=== PATIENT | female | born 1945 | race Caucasian/White ===

== ENCOUNTER 2019-03-28 23:24 | Emergency (ER) | payer MEDICAID ==
[~2019-03-28] VITALS: Ht 162.6 cm; Wt 80.0 kg
[2019-03-29] MEDS ORDERED: SODIUM CHLORIDE 0.9% 1,000 ML IV ONE
[2019-03-29] MEDS ORDERED: KETOROLAC 15MG/ML VIAL IV ONE (00:15)
[2019-03-29] MEDS ORDERED: FAMOTIDINE 20MG TABLET PO ONE (00:15)
[2019-03-29 00:21] LABS: BASOPHILS % 0.6 % (0.0-2.0); EOSINOPHILS % 0.9 % (0.0-5.0); HEMATOCRIT. 34.7 % (36.0-48.0); LYMPHOCYTES % 19.5 % (20.0-50.0); MEAN CORPUSCULAR HEMOGLOBIN 31.5 pg (28.0-32.0); MEAN CORPUSCULAR VOLUME 91.2 fL (81.0-99.0); MEAN PLATELET VOLUME 7.2 fl (7.4-10.4); MONOCYTES % 5.2 % (2.0-8.0); NEUTROPHILS % 73.8 % (40.0-76.0); PLATELET 298 x1000/uL (130-400); RED BLOOD CELL COUNT 3.81 mill/uL (4.2-5.4); RED CELL DISTRIBUTION WIDTH 13.3 % (11.6-14.6)
[2019-03-29 00:36] LABS: CHLORIDE 101 mEq/L (98-107)
[2019-03-29 01:24] LABS: CLARITY URINE CLEAR (CLEAR); COLOR URINE YELLOW (YELLOW); KETONES URINE NEGATIVE (NEGATIVE); LEUKOCYTE ESTERASE URINE NEGATIVE (NEGATIVE); NITRITE URINE NEGATIVE (NEGATIVE); OCCULT BLOOD URINE TRACE (NEGATIVE); PROTEIN URINE NEGATIVE (NEGATIVE); SPECIFIC GRAVITY URINE 1.005 (1.005-1.030); UROBILINOGEN URINE 0.2 E.U./dL (0.2-1.0)
[2019-03-29 05:45] VITALS: BP 152/83
== END 2019-03-29 05:48 | disposition home or self-care (01) ==
LOC: ER 23:24
DX: E86.0 Dehydration (principal); R20.0 Anesthesia of skin; R03.0 Elevated blood-pressure reading, without diagnosis of hypertension; K59.00 Constipation, unspecified
CPT/HCPCS: 36415; 71045; 74018; 80053; 81003; 83605; 83880; 84484; 85025; 93005; 96360; 96361; 99284; J7030

== ENCOUNTER 2019-03-31 17:16 | Inpatient (IN) | payer MEDICAID ==
[~2019-03-31] VITALS: Ht 167.6 cm; Wt 79.4 kg
[2019-03-31] MEDS ORDERED: SODIUM CHLORIDE 0.9% 1,000 ML IV ONE (18:18)
[2019-03-31] MEDS ORDERED: ONDANSETRON HCL 4MG/2ML INJ IV STA (18:18)
[2019-03-31] MEDS ORDERED: MORPHINE SULFATE 4 MG/ML CPJ (NOT FOR IM USE) IV STA (18:18)
[2019-03-31 18:51] LABS: BASOPHILS % 0.2 % (0.0-2.0); EOSINOPHILS % 0.2 % (0.0-5.0); HEMOGLOBIN. 11.8 g/dL (12.0-16.0); LYMPHOCYTES % 13.7 % (20.0-50.0); MEAN CORPUSCULAR HEMOGLOBIN 31.8 pg (28.0-32.0); MEAN CORPUSCULAR VOLUME 88.6 fL (81.0-99.0); MEAN PLATELET VOLUME 6.8 fl (7.4-10.4); MONOCYTES % 3.4 % (2.0-8.0); NEUTROPHILS % 82.5 % (40.0-76.0); PLATELET 271 x1000/uL (130-400); RED BLOOD CELL COUNT 3.72 mill/uL (4.2-5.4); RED CELL DISTRIBUTION WIDTH 13.1 % (11.6-14.6)
[2019-03-31 18:57] LABS: CHLORIDE 89 mEq/L (98-107); PROTHROMBIN TIME 10.6 sec (9.6-11.0)
[2019-03-31 19:48] LABS: CLARITY URINE CLEAR (CLEAR); COLOR URINE YELLOW (YELLOW); KETONES URINE NEGATIVE (NEGATIVE); LEUKOCYTE ESTERASE URINE NEGATIVE (NEGATIVE); NITRITE URINE NEGATIVE (NEGATIVE); OCCULT BLOOD URINE 1+ (NEGATIVE); PH URINE 7.5 (4.5-8.0); PROTEIN URINE NEGATIVE (NEGATIVE); SPECIFIC GRAVITY URINE 1.004 (1.005-1.030); UROBILINOGEN URINE 0.2 E.U./dL (0.2-1.0)
[2019-03-31 22:57] VITALS: BP 147/68
[2019-03-31] MEDS ORDERED: LISI-186 PO (23:55)
[2019-03-31] MEDS ORDERED: ONDA4TAB11 PO (23:55)
[2019-03-31] MEDS ORDERED: ALPR-393 PO (23:55)
[2019-03-31] MEDS ORDERED: PARO-41 PO (23:55)
[2019-03-31] MEDS ORDERED: METF-815 PO (23:55)
[2019-03-31] MEDS ORDERED: TRAM50TA3 PO (23:55)
[2019-04-01] MEDS ORDERED: MORPHINE SULFATE 2 MG/ML CPJ (NOT FOR IM USE) IV PRN (00:15)
[2019-04-01] MEDS ORDERED: DEXTROSE 50% WATER 50ML SYRINGE IV PRN (00:15)
[2019-04-01] MEDS ORDERED: CLONIDINE 0.1MG TABLET PO PRN (00:15)
[2019-04-01] MEDS ORDERED: ONDANSETRON HCL 4MG/2ML INJ IV PRN (00:15)
[2019-04-01] MEDS: DEXT 5%/0.45% NACL 1000ML 1,000 ML IV SCH ×2 (00:47→10:57)
[2019-04-01 00:49] VITALS: BP 147/68
[2019-04-01] MEDS ORDERED: ONDANSETRON 4MG ODT PO PRN (01:30)
[2019-04-01] MEDS ORDERED: TRAMADOL 50MG TABLET PO PRN (01:30)
[2019-04-01 04:00] VITALS: BP 125/43
[2019-04-01 07:15] LABS: BASOPHILS % 0.5 % (0.0-2.0); EOSINOPHILS % 0.7 % (0.0-5.0); HEMATOCRIT. 31.8 % (36.0-48.0); HEMOGLOBIN. 11.4 g/dL (12.0-16.0); LYMPHOCYTES % 25.2 % (20.0-50.0); MEAN CORPUSCULAR HEMOGLOBIN 31.8 pg (28.0-32.0); MEAN CORPUSCULAR VOLUME 89.1 fL (81.0-99.0); MEAN PLATELET VOLUME 7.4 fl (7.4-10.4); MONOCYTES % 6.8 % (2.0-8.0); NEUTROPHILS % 66.8 % (40.0-76.0); PLATELET 273 x1000/uL (130-400); RED BLOOD CELL COUNT 3.57 mill/uL (4.2-5.4); RED CELL DISTRIBUTION WIDTH 13.3 % (11.6-14.6)
[2019-04-01 07:36] LABS: CHLORIDE 95 mEq/L (98-107)
[2019-04-01 08:00] VITALS: BP 136/61
[2019-04-01] MEDS: INSULIN LISPRO 100 UNITS/ML SUBCUT SCH ×4 (08:10→21:00)
[2019-04-01] MEDS: BLOOD SUGAR DIAGNOSTIC STRIP TEST SCH ×4 (08:34→21:28)
[2019-04-01] MEDS: PAROXETINE HCL 10MG TABLET PO SCH (08:57)
[2019-04-01] MEDS: ENOXAPARIN 40MG/0.4ML SYR SUBCUT SCH (09:00)
[2019-04-01] MEDS: LISINOPRIL 5MG TABLET PO SCH (09:00)
[2019-04-01] MEDS ORDERED: PANTOPRAZOLE SODIUM 40 MG/VIAL IV SCH (09:00)
[2019-04-01 12:00] VITALS: BP 147/72
[2019-04-01] MEDS: POTASSIUM CHLORIDE 20MEQ TABLET SR PO SCH (12:16)
[2019-04-01] MEDS ORDERED: IOHEXOL-350 100 ML BOTTLE ONE (13:45)
[2019-04-01] MEDS ORDERED: AMLODIPINE 5MG TABLET PO SCH (14:00)
[2019-04-01] MEDS ORDERED: ONDANSETRON HCL 4MG/2ML INJ IV SCH (14:15)
[2019-04-01 16:00] VITALS: BP 128/79
[2019-04-01] MEDS: METOCLOPRAMIDE HCL 10MG TABLET PO SCH ×2 (18:16→21:28)
[2019-04-01] MEDS: SODIUM CHLORIDE 0.9% 1,000 ML IV SCH (18:16)
[2019-04-01 20:00] VITALS: BP 145/87
[2019-04-01] MEDS: ALPRAZOLAM 0.5 MG TABLET PO PRN (21:28)
[2019-04-01] MEDS: OMEPRAZOLE 20MG CAPSULE EXTENDED RELEASE PO SCH (21:28)
[2019-04-02] VITALS (7 sets, daily range): BP systolic 99–136; BP diastolic 49–78
[2019-04-02] MEDS: SODIUM CHLORIDE 0.9% 1,000 ML IV SCH ×3 (03:26→23:28)
[2019-04-02] MEDS: INSULIN LISPRO 100 UNITS/ML SUBCUT SCH ×3 (06:36→23:25)
[2019-04-02] MEDS: BLOOD SUGAR DIAGNOSTIC STRIP TEST SCH ×3 (06:36→23:25)
[2019-04-02 07:07] LABS: BASOPHILS % 0.2 % (0.0-2.0); EOSINOPHILS % 0.3 % (0.0-5.0); HEMATOCRIT. 34.5 % (36.0-48.0); HEMOGLOBIN. 12.1 g/dL (12.0-16.0); LYMPHOCYTES % 20.5 % (20.0-50.0); MEAN CORPUSCULAR HEMOGLOBIN 31.4 pg (28.0-32.0); MEAN CORPUSCULAR VOLUME 89.5 fL (81.0-99.0); MEAN PLATELET VOLUME 7.2 fl (7.4-10.4); MONOCYTES % 6.2 % (2.0-8.0); NEUTROPHILS % 72.8 % (40.0-76.0); PLATELET 276 x1000/uL (130-400); RED BLOOD CELL COUNT 3.85 mill/uL (4.2-5.4); RED CELL DISTRIBUTION WIDTH 13.1 % (11.6-14.6)
[2019-04-02 07:18] LABS: CHLORIDE 97 mEq/L (98-107)
[2019-04-02] MEDS: ENOXAPARIN 40MG/0.4ML SYR SUBCUT SCH (09:12)
[2019-04-02] MEDS: LISINOPRIL 5MG TABLET PO SCH (09:12)
[2019-04-02] MEDS: POTASSIUM CHLORIDE 20MEQ TABLET SR PO SCH (09:13)
[2019-04-02] MEDS: OMEPRAZOLE 20MG CAPSULE EXTENDED RELEASE PO SCH ×2 (09:13→23:26)
[2019-04-02] MEDS: METOCLOPRAMIDE HCL 10MG TABLET PO SCH ×3 (09:15→23:24)
[2019-04-02] MEDS: PAROXETINE HCL 10MG TABLET PO SCH (09:15)
[2019-04-02] MEDS: AMLODIPINE 5MG TABLET PO SCH (09:16)
[2019-04-02] MEDS ORDERED: POTASSIUM CHLORIDE 20MEQ TABLET SR PO NR (11:00)
[2019-04-03] VITALS: BP 142/76
[2019-04-03 04:00] VITALS: BP 150/63
[2019-04-03 05:56] LABS: BASOPHILS % 0.4 % (0.0-2.0); EOSINOPHILS % 0.4 % (0.0-5.0); HEMATOCRIT. 32.9 % (36.0-48.0); HEMOGLOBIN. 11.7 g/dL (12.0-16.0); LYMPHOCYTES % 19.1 % (20.0-50.0); MEAN CORPUSCULAR HEMOGLOBIN 31.8 pg (28.0-32.0); MEAN CORPUSCULAR VOLUME 89.5 fL (81.0-99.0); MEAN PLATELET VOLUME 7.4 fl (7.4-10.4); MONOCYTES % 5.3 % (2.0-8.0); NEUTROPHILS % 74.8 % (40.0-76.0); PLATELET 281 x1000/uL (130-400); RED BLOOD CELL COUNT 3.68 mill/uL (4.2-5.4); RED CELL DISTRIBUTION WIDTH 13.1 % (11.6-14.6)
[2019-04-03 06:08] LABS: CHLORIDE 100 mEq/L (98-107)
[2019-04-03] MEDS: BLOOD SUGAR DIAGNOSTIC STRIP TEST SCH ×4 (06:24→18:10)
[2019-04-03 08:00] VITALS: BP 136/63
[2019-04-03] MEDS: INSULIN LISPRO 100 UNITS/ML SUBCUT SCH ×2 (08:10→18:10)
[2019-04-03] MEDS: OMEPRAZOLE 20MG CAPSULE EXTENDED RELEASE PO SCH (09:36)
[2019-04-03] MEDS: ENOXAPARIN 40MG/0.4ML SYR SUBCUT SCH (09:36)
[2019-04-03] MEDS: PAROXETINE HCL 10MG TABLET PO SCH (09:36)
[2019-04-03] MEDS: LISINOPRIL 5MG TABLET PO SCH (09:38)
[2019-04-03] MEDS: POTASSIUM CHLORIDE 20MEQ TABLET SR PO SCH (09:38)
[2019-04-03] MEDS: AMLODIPINE 5MG TABLET PO SCH (09:39)
[2019-04-03] MEDS: METOCLOPRAMIDE HCL 10MG TABLET PO SCH ×2 (09:44→15:21)
[2019-04-03] MEDS: SODIUM CHLORIDE 0.9% 1,000 ML IV SCH (11:11)
[2019-04-03 12:00] VITALS: BP 128/60
[2019-04-03] MEDS: ALPRAZOLAM 0.5 MG TABLET PO PRN (15:22)
[2019-04-03 16:00] VITALS: BP 132/65
== END 2019-04-03 20:10 | disposition home or self-care (01) | DRG 241 ==
LOC: ER 17:16 → EDBEDREQ 19:07 → EDBEDREQTM 19:35 → EDBEDREQSVC 20:09 → EDBEDREQTM 20:09 → 7WST 20:15 → EDBEDREQTM 20:26 → EDBEDREQ 20:26 → ENRESERV 22:22
PROVIDERS: ADMIT Internal Medicine; ATTEND Internal Medicine
DX: K29.70 Gastritis, unspecified, without bleeding (principal); K31.84 Gastroparesis; E87.8 Other disorders of electrolyte and fluid balance, not elsewhere classified; E11.43 Type 2 diabetes mellitus with diabetic autonomic (poly)neuropathy; E87.1 Hypo-osmolality and hyponatremia; E86.1 Hypovolemia; E44.1 Mild protein-calorie malnutrition; F41.9 Anxiety disorder, unspecified; K76.0 Fatty (change of) liver, not elsewhere classified; E87.6 Hypokalemia; E78.00 Pure hypercholesterolemia, unspecified; E78.5 Hyperlipidemia, unspecified; K57.90 Diverticulosis of intestine, part unspecified, without perforation or abscess without bleeding; R07.9 Chest pain, unspecified; I10 Essential (primary) hypertension; I44.0 Atrioventricular block, first degree; F32.9 Major depressive disorder, single episode, unspecified; K44.9 Diaphragmatic hernia without obstruction or gangrene; K59.00 Constipation, unspecified; Z79.4 Long term (current) use of insulin; Z68.28 Body mass index [BMI] 28.0-28.9, adult
CPT/HCPCS: 36415; 71045; 71275; 72131; 74176; 80048; 81003; 82962; 83880; 84484; 93005; 93306; 93970; 99285; C9113; J1650; J1815; J2270; J2405; J7030; J8597; Q9967

== ENCOUNTER 2019-04-04 23:30 | Inpatient (IN) | payer MEDICAID ==
[~2019-04-04] VITALS: Ht 157.5 cm; Wt 79.5 kg
[~2019-04-04 23:30] MED LIST: ALPR-393 PO; LISI-186 PO; METF-815 PO; ONDA4TAB11 PO; PARO-41 PO; TRAM50TA3 PO
[2019-04-05 04:08] LABS: CHLORIDE 82 mEq/L (98-107)
[2019-04-05 04:11] LABS: BASOPHILS % 0.3 % (0.0-2.0); EOSINOPHILS % 0.1 % (0.0-5.0); HEMATOCRIT. 35.5 % (36.0-48.0); HEMOGLOBIN. 12.6 g/dL (12.0-16.0); LYMPHOCYTES % 17.5 % (20.0-50.0); MEAN CORPUSCULAR HEMOGLOBIN 31.6 pg (28.0-32.0); MEAN CORPUSCULAR VOLUME 88.9 fL (81.0-99.0); MEAN PLATELET VOLUME 7.1 fl (7.4-10.4); MONOCYTES % 5.4 % (2.0-8.0); NEUTROPHILS % 76.7 % (40.0-76.0); PLATELET 292 x1000/uL (130-400)
[2019-04-05] MEDS ORDERED: SODIUM CHLORIDE 0.9% 1,000 ML IV ONE (05:30)
[2019-04-05 16:00] VITALS: BP 150/76
[2019-04-05 17:00] VITALS: BP 159/92
[2019-04-05 18:00] VITALS: BP 150/73
[2019-04-05 20:00] VITALS: BP 155/78
[2019-04-05] MEDS ORDERED: CLONIDINE 0.1MG TABLET PO PRN (20:30)
[2019-04-05] MEDS ORDERED: ACETAMINOPHEN 325MG TABLET PO PRN (20:30)
[2019-04-05] MEDS ORDERED: ONDANSETRON HCL 4MG/2ML INJ IV PRN (20:30)
[2019-04-05] MEDS ORDERED: ALPRAZOLAM 0.25 MG TABLET PO PRN (20:45)
[2019-04-05] MEDS ORDERED: TRAMADOL 50MG TABLET PO PRN (21:00)
[2019-04-05 22:00] VITALS: BP 118/68
[2019-04-05] MEDS ORDERED: DEXTROSE 50% WATER 50ML SYRINGE IV PRN (23:00)
[2019-04-06] VITALS (10 sets, daily range): BP systolic 111–152; BP diastolic 52–103
[2019-04-06] MEDS: SODIUM CHLORIDE 0.9% 1,000 ML IV SCH (01:30)
[2019-04-06 06:20] LABS: CHLORIDE 90 mEq/L (98-107)
[2019-04-06 06:24] LABS: BASOPHILS % 0.4 % (0.0-2.0); EOSINOPHILS % 0.6 % (0.0-5.0); HEMATOCRIT. 33.9 % (36.0-48.0); HEMOGLOBIN. 12.1 g/dL (12.0-16.0); MEAN CORPUSCULAR HEMOGLOBIN 31.5 pg (28.0-32.0); MEAN PLATELET VOLUME 7.3 fl (7.4-10.4); PLATELET 280 x1000/uL (130-400); RED BLOOD CELL COUNT 3.86 mill/uL (4.2-5.4)
[2019-04-06] MEDS: BLOOD SUGAR DIAGNOSTIC STRIP TEST SCH ×4 (07:30→20:55)
[2019-04-06] MEDS ORDERED: BLOOD SUGAR DIAGNOSTIC STRIP TEST SCH (07:30)
[2019-04-06] MEDS ORDERED: INSULIN LISPRO 100 UNITS/ML SUBCUT SCH (07:30)
[2019-04-06] MEDS ORDERED: POTASSIUM CHLORIDE 20MEQ TABLET SR PO NR (07:45)
[2019-04-06] MEDS: INSULIN LISPRO 100 UNITS/ML SUBCUT SCH ×4 (08:00→20:55)
[2019-04-06] MEDS: ENOXAPARIN 40MG/0.4ML SYR SUBCUT SCH (08:54)
[2019-04-06] MEDS: LISINOPRIL 5MG TABLET PO SCH ×2 (08:57→09:04)
[2019-04-06] MEDS: LACTULOSE 20G/30ML UDC PO SCH (17:01)
[2019-04-07] VITALS (12 sets, daily range): BP systolic 117–146; BP diastolic 57–80
[2019-04-07] MEDS: SODIUM CHLORIDE 0.9% 1,000 ML IV SCH (02:44)
[2019-04-07 07:11] LABS: BASOPHILS % 0.4 % (0.0-2.0); EOSINOPHILS % 0.4 % (0.0-5.0); HEMOGLOBIN. 11.9 g/dL (12.0-16.0); MEAN CORPUSCULAR HEMOGLOBIN 31.4 pg (28.0-32.0); MEAN CORPUSCULAR VOLUME 89.9 fL (81.0-99.0); MEAN PLATELET VOLUME 7.2 fl (7.4-10.4); MONOCYTES % 6.9 % (2.0-8.0); NEUTROPHILS % 74.3 % (40.0-76.0); PLATELET 273 x1000/uL (130-400); RED BLOOD CELL COUNT 3.78 mill/uL (4.2-5.4); RED CELL DISTRIBUTION WIDTH 13.2 % (11.6-14.6)
[2019-04-07] MEDS: INSULIN LISPRO 100 UNITS/ML SUBCUT SCH ×3 (08:00→17:03)
[2019-04-07] MEDS: BLOOD SUGAR DIAGNOSTIC STRIP TEST SCH ×3 (08:13→17:03)
[2019-04-07] MEDS: ENOXAPARIN 40MG/0.4ML SYR SUBCUT SCH (08:47)
[2019-04-07] MEDS: LACTULOSE 20G/30ML UDC PO SCH ×2 (08:47→17:00)
[2019-04-07] MEDS: LISINOPRIL 5MG TABLET PO SCH (08:48)
[2019-04-07 08:49] LABS: CHLORIDE 101 mEq/L (98-107)
[2019-04-07 08:56] LABS: PHOSPHORUS 3.5 mg/dL (2.5-4.9)
[2019-04-07] MEDS ORDERED: LACT10SO7 PO (17:05)
== END 2019-04-07 19:20 | disposition home or self-care (01) | DRG 426 ==
LOC: ER 23:30 → 5EST 04-05 05:26 → EDBEDREQSVC 04-05 09:39 → ENRESERV 04-05 12:29
PROVIDERS: ADMIT Internal Medicine; ATTEND Internal Medicine
DX: E87.1 Hypo-osmolality and hyponatremia (principal); E11.9 Type 2 diabetes mellitus without complications; I10 Essential (primary) hypertension; F41.9 Anxiety disorder, unspecified; F32.9 Major depressive disorder, single episode, unspecified; K59.00 Constipation, unspecified; T43.225A Adverse effect of selective serotonin reuptake inhibitors, initial encounter; Y92.89 Other specified places as the place of occurrence of the external cause; Z79.4 Long term (current) use of insulin
CPT/HCPCS: 36415; 71045; 80048; 80061; 82533; 82962; 83735; 83880; 83930; 84100; 84295; 84443; 84484; 93005; 99285; J1650; J2405; J7030